=== PATIENT | male | born 1980 | race Caucasian/White ===

== ENCOUNTER 2016-04-28 09:58 | Emergency (ER) | payer OTHER ==
[~2016-04-28] VITALS: Ht 175.3 cm; Wt 88.5 kg
[2016-04-28 10:01] VITALS: BP 140/82
--- NOTE | 2016-04-28 10:08 | NUR ---
PT BIB SELF C/O RT SHOULDER PAIN X 1 WEEK; PT STATES HAD INJURY TO RT SHOULDER X 10 YEARS AGO FALLING OFF ROOF, HAD SCREW REMOVED FROM SHOULDER X 5 YEARS AGO D/T INFECTION, BUT DENIES RECENT INJURY TO SITE AT THIS TIME. RT SHOULDER IS SWOLLEN.PAIN IS AGGRAVATED BY MOVEMENT W/ A PAIN SCALE OF 10/10.HAS A HEALED SCAR AT RT SHOULDER;DENIES CP/SOB/F/N/V/.DESCRIBES PAIN POKING.AAOX4; NO ACUTE DISTRESS NOTED AT THIS TIME;HOB ELEVATED;POSITION FOR COMFORT;SAFETY PRECAUTION INSTITUTED;NEEDS ATTENDED;MD MADE AWARE OF PT'D CONDITION.
[2016-04-28] MEDS ORDERED: HYDROcodone/APAP 5/325 MG 1 TAB TAB PO ONE (10:30)
[2016-04-28] MEDS ORDERED: KETOROLAC 30 MG/ML VIAL IM ONE (10:30)
--- NOTE | 2016-04-28 10:34 | NUR ---
PT TAKEN TO XRAY VIA WHEELCHAIR
--- NOTE | 2016-04-28 10:48 | NUR ---
BACK FROM XRAY;NO ACUTE DISTRESS NOTED A THIS TIME;WILL CONTINUE TO MONITOR PT.
--- NOTE | 2016-04-28 11:37 | NUR ---
Patient discharged with v/s stable. Written and verbal after care instructions given and explained.Patient alert, oriented and verbalized understanding of instructions. Ambulatory with steady gait. All questions addressed prior to discharge. ID band removed. Patient advised to follow up with PMD. Rx of MOTRIN AND ROBAXIN given. Patient educated on indication of medication including possible reaction and side effects. Opportunity to ask questions provided and answered.ADVISED PT TO REFRAIN FROM STRENOUS ACTIVITIES UNTIL PAIN SUBSIDES.
[2016-04-28 11:39] VITALS: BP 112/66
== END 2016-04-28 11:37 | disposition home or self-care (01) ==
LOC: MED 09:58
DX: G89.29 Other chronic pain (principal); M25.511 Pain in right shoulder; F17.200 Nicotine dependence, unspecified, uncomplicated; Z71.6 Tobacco abuse counseling; Z98.890 Other specified postprocedural states
CPT/HCPCS: 73030; 96372; 99284; J1885

== ENCOUNTER 2018-12-29 08:15 | Emergency (ER) | payer MEDICAID, OTHER ==
[~2018-12-29] VITALS: Ht 175.3 cm; Wt 81.8 kg
[2018-12-29 08:18] VITALS: BP 137/73
--- NOTE | 2018-12-29 08:24 | NUR ---
PT AMB TO BED 7.
--- NOTE | 2018-12-29 08:25 | NUR ---
HOMELESS. BIB SELF C/O GENEVIEVE FORARM pain &SWELLING & "HOLE IN LT ARM" X2 WEEKS. OPEN WOUND TO LT FOREARM, PT REPORTS DRANAGE LAST NIGHT. - N/V OR FEVER. ADMITS TO IV HEROIN USE IN PAST 24 HOURS. PATIENT STATES PAIN OF 8/10 AT THIS TIME. PATIENT POSITIONED FOR COMFORT; BEDRAILS UP X1; BED DOWN. ER MD MADE AWARE OF PT STATUS.
--- NOTE | 2018-12-29 08:34 | NUR ---
Patient being evaluated by DR ADAMS at bedside.
[2018-12-29] MEDS ORDERED: SULFAMETH/TRIMETH DS 800/160MG 1 TAB PO ONE (08:45)
[2018-12-29] MEDS ORDERED: BACITRACIN OINT 500 UNITS/GM PKT TP ONE (08:45)
[2018-12-29] MEDS ORDERED: CEPHALEXIN 500 MG CAP PO ONE (08:45)
--- NOTE | 2018-12-29 08:50 | NUR ---
LFA WOUND DRESSING WITH NSS & APPLIED WITH BACITACIN & COVER WITH GAUZE & SECURE WITH TAPE. INSTRUCTED PT TO KEEP IT CLEAN &DRY.
--- NOTE | 2018-12-29 09:02 | NUR ---
Patient discharged with v/s stable. Written and verbal after care instructions given and explained. Patient alert, oriented and verbalized understanding of instructions. Ambulatory with steady gait. All questions addressed prior to discharge. ID band removed. Patient advised to follow up with PMD. Rx of KEFLEX, BACTRIM & NAPROXEN given. Patient educated on indication of medication including possible reaction and side effects. Opportunity to ask questions provided and answered. Given list of available shelters in surrounding areas.
[2018-12-29 09:04] VITALS: BP 125/67
== END 2018-12-29 09:02 | disposition home or self-care (01) ==
LOC: MED 08:15
DX: S41.102A Unspecified open wound of left upper arm, initial encounter (principal); L08.9 Local infection of the skin and subcutaneous tissue, unspecified; F14.90 Cocaine use, unspecified, uncomplicated; F11.90 Opioid use, unspecified, uncomplicated; Z59.0 Homelessness; X58.XXXA Exposure to other specified factors, initial encounter; Y93.89 Activity, other specified; Y92.89 Other specified places as the place of occurrence of the external cause; Y99.8 Other external cause status
CPT/HCPCS: 99284

== ENCOUNTER 2019-01-22 21:42 | Emergency (ER) | payer MEDICAID ==
[~2019-01-22] VITALS: Ht 175.3 cm; Wt 81.2 kg
[2019-01-22 21:55] VITALS: BP 149/85
--- NOTE | 2019-01-22 21:55 | NUR ---
PT ARRIVED TO ED C/O BILAT FOREARM ABSCESS X 3DAYS. PT STATES HE GOT THE LEFT SIDE ABSCESS 3 WEEKS AGO AND SAID HE WAS SENT HOME WITH ANTIBIOTIC. PT STATES THE RIGHT FOREARM STARTED FORING AN ABSCESS 3 DAYS AGO. BILAT FOREARSM SHOWS REDNESS, SWELLING, HOT AND HARD TO TOUCH. VSS. RIGHT FOREARM SHOWS SKIN TEARS, DRY BLOOD, AND SCRATCH HERRERA. NO DISTRSS NOTED. NO DRIANAGE NOTED. PT STATES HE DOES USE DRUG USE (HEROIN AND COKE). NKA. PMH: SUBSTANCE ABUSE (HEROIN IV USE Q DAY 4-5X A DAY X 10+ YR, COKE ON AND OFF Q DAY 4-5X A DAY X 5+YR.)
--- NOTE | 2019-01-22 21:55 | NUR ---
TO BED # 04 AMBULATORY
--- NOTE | 2019-01-22 23:03 | NUR ---
AT BEDSIDE TO JARON IBRAHIM
[2019-01-22] MEDS ORDERED: LIDOCAINE/EPI 1% 1:100000 20 ML VIAL INJ ONE (23:15)
--- NOTE | 2019-01-22 23:30 | NUR ---
DR DEE AT BEDSIDE FOR I&D, LIDOCAINE 1% WITH EPI ADMINISTERED BY DR DEE
[2019-01-22] MEDS ORDERED: CEPHALEXIN 500 MG CAP PO ONE (23:45)
[2019-01-22] MEDS ORDERED: SULFAMETH/TRIMETH DS 800/160MG 1 TAB PO ONE (23:45)
--- NOTE | 2019-01-23 00:05 | NUR ---
PT WOUNDS IRRIGATED AND CLEANED WITH NORMAL SALINE AND 3X3 GAUZE PADS, PT FOREARMS BOTH RIGHT AND LEFT DRESSED WITH 3X4 NON ADHERENT PADS AND WRAPPED WITH 4INCH GAUZE WRAP
[2019-01-23 00:31] VITALS: BP 149/85
--- NOTE | 2019-01-23 00:31 | NUR ---
Patient discharged with v/s stable. Written and verbal after care instructions given and explained. Patient alert, oriented and verbalized understanding of instructions. Ambulatory with steady gait. All questions addressed prior to discharge. ID band removed. Patient advised to follow up with PMD. Rx of NARCAN, BACTRIM, AND KEFLEX given. Patient educated on indication of medication including possible reaction and side effects. Opportunity to ask questions provided and answered.
== END 2019-01-23 00:31 | disposition home or self-care (01) ==
LOC: MED 21:42
DX: L02.414 Cutaneous abscess of left upper limb (principal); L02.413 Cutaneous abscess of right upper limb; F11.10 Opioid abuse, uncomplicated; F14.10 Cocaine abuse, uncomplicated
CPT/HCPCS: 10061; 99284; J2001

== ENCOUNTER 2019-03-05 15:35 | Emergency (ER) | payer MEDICAID ==
[~2019-03-05] VITALS: Ht 175.3 cm; Wt 78.9 kg
[2019-03-05 15:43] VITALS: BP 145/95
--- NOTE | 2019-03-05 15:50 | NUR ---
C/O ABSCESS TO RIGHT UPPER ARM X2 DAYS. STATES HIT AFFECTED AREA AGAINST STACK OF PALETTES AT WORK. DENIES OPEN SKIN, DRAINAGE, FEVERS. ABSCESS NOTED ON RT UPPER ARM WITH ERYTHEMA, WARMTH, SCALING AND FLUCTUENCE AT CENTER. HX DENIES
--- NOTE | 2019-03-05 16:16 | NUR ---
MANGO MONSIVAIS EVALUATING PT AT BEDSIDE
[2019-03-05] MEDS ORDERED: LIDOCAINE/EPI 1% 1:100000 20 ML VIAL INJ ONE (16:20)
[2019-03-05 16:47] VITALS: BP 145/95
--- NOTE | 2019-03-05 16:47 | NUR ---
Patient discharged with v/s stable. Written and verbal after care instructions given and explained. Patient alert, oriented and verbalized understanding of instructions. Ambulatory with steady gait. All questions addressed prior to discharge. ID band removed. Patient advised to follow up with PMD. Rx of KEFLEX, MOTRIN, BACTRIM DS given. Patient educated on indication of medication including possible reaction and side effects. Opportunity to ask questions provided and answered.
== END 2019-03-05 16:47 | disposition home or self-care (01) ==
LOC: MED 15:35
DX: L02.413 Cutaneous abscess of right upper limb (principal); F11.20 Opioid dependence, uncomplicated
CPT/HCPCS: 10060; 99283; J2001

== ENCOUNTER 2019-03-07 20:05 | Emergency (ER) | payer MEDICAID ==
--- NOTE | 2019-03-07 20:20 | NUR ---
PATIENT CALLED [facility] TRIAGE NO RESPONSE PATIENT LEFT WITHOUT BEING SEEN BY DR. KELLY. NO FURTHER CARE PROVIDED FOR PATIENT.
--- NOTE | 2019-03-07 20:25 | NUR ---
CALLED FOR THE SECOND TIME NO RESPONSE
--- NOTE | 2019-03-07 20:30 | NUR ---
CALLED FOR THE THIRD TIME NO RESPONSE
== END 2019-03-07 20:20 | disposition left against medical advice (07) ==
LOC: MED 20:05
DX: L02.91 Cutaneous abscess, unspecified (principal); Z53.21 Procedure and treatment not carried out due to patient leaving prior to being seen by health care provider

== ENCOUNTER 2019-03-07 21:10 | Emergency (ER) | payer MEDICAID ==
[~2019-03-07] VITALS: Ht 175.3 cm; Wt 81.2 kg
[2019-03-07 21:10] VITALS: BP 155/90
--- NOTE | 2019-03-07 21:12 | NUR ---
TO LOBBY A/W BED AMBULATORY
--- NOTE | 2019-03-07 23:36 | NUR ---
PT AMBULATED TO CHAIR C.
--- NOTE | 2019-03-08 00:05 | NUR ---
Dr. Kelley examining patient.
[2019-03-08 00:12] VITALS: BP 155/90
--- NOTE | 2019-03-08 00:12 | NUR ---
Patient discharged with v/s stable. Written and verbal after care instructions given and explained. Patient verbalized understanding. Ambulatory with steady gait. All questions addressed prior to discharge. Advised to follow up with PMD. PT WAS ASSESSED AND D/C BY DR. KELLY
== END 2019-03-08 00:12 | disposition home or self-care (01) ==
LOC: MED 21:10
DX: L02.413 Cutaneous abscess of right upper limb (principal); M79.601 Pain in right arm; F11.10 Opioid abuse, uncomplicated
CPT/HCPCS: 99283

== ENCOUNTER 2019-03-20 00:49 | Emergency (ER) | payer MEDICAID ==
[~2019-03-20] VITALS: Ht 175.3 cm; Wt 78.5 kg
[2019-03-20 00:53] VITALS: BP 124/80
--- NOTE | 2019-03-20 00:58 | NUR ---
PT AMBULATED TO BED #7
[2019-03-20] MEDS ORDERED: FLUORESCEIN OPTH STRIP 1 MG OP ONE (01:10)
[2019-03-20] MEDS ORDERED: TETRACAINE HCL/PF 0.5% OPTH 4 ML BTL OP ONE (01:10)
--- NOTE | 2019-03-20 01:15 | NUR ---
38 YEAR OLD MALE COMPLAINS OF RIGHT EYE SWELLING X 30MINS. PATIENT STATES THAT HIS EYE FELT ITCHY AND STARTED TO RUB IT, THEN IT BECAME INFLAMMED. RIGHT EYE VISIBLY SWOLLEN, NO DISCHARGE NOTED. PATIENT STATES THAT HE PUT A PREDNISONE EYEDROP THAT HIS FATHER GAVE HIM. PATIENT STATES HIS RIGHT EYE IS MORE BLURRY THAN NORMAL. PATIENT AOX4, BREATHING EVNE AND UNLABORED, SKIN WARM AND DRY. BED IN LOWEST POSITION, LOCKED, BED RAIL UPX1. PMH - HEROIN
--- NOTE | 2019-03-20 01:25 | NUR ---
20/70 VISUAL ACUITY RESULTS FOR BOTH RIGHT AND LEFT EYES, PATIENT STATES THAT HE IS FAR SIGHTED AND FORGOT HIS GLASSES AT HOME, DR RENDON MADE AWARE.
--- NOTE | 2019-03-20 01:35 | NUR ---
DR RENDON AT BEDSIDE EXAMINING PT EYE
--- NOTE | 2019-03-20 02:19 | NUR ---
PATIENT ELOPED FROM FACILITY. DISCHARGE INSTRUCTIONS NOT GIVEN TO PATIENT. DR. RENDON NOTIFIED. PATIENT STATES "IM JUST GOING TO GO HOME, I DONT WANT TO WAIT"
== END 2019-03-20 02:19 | disposition left against medical advice (07) ==
LOC: MED 00:49
DX: H10.11 Acute atopic conjunctivitis, right eye (principal); F11.90 Opioid use, unspecified, uncomplicated; Z91.018 Allergy to other foods
CPT/HCPCS: 99284; Q0163

== ENCOUNTER 2022-06-02 17:37 | Emergency (ER) | payer MEDICAID ==
[~2022-06-02] VITALS: Ht 172.7 cm; Wt 79.4 kg
[2022-06-02 17:41] VITALS: BP 149/79
[2022-06-02] MEDS ORDERED: KETOROLAC 30 MG/ML VIAL IM ONE (18:00)
[2022-06-02] MEDS ORDERED: BACITRACIN OINT 500 UNITS/GM PKT TP ONE (18:00)
[2022-06-02] MEDS ORDERED: CEPH-588 PO (18:11)
[2022-06-02] MEDS ORDERED: IBUP-2213 PO (18:11)
--- NOTE | 2022-06-02 18:28 | NUR ---
Patient discharged with v/s stable. Written and verbal after care instructions given and explained. Patient alert, oriented and verbalized understanding of instructions. Ambulatory with steady gait. All questions addressed prior to discharge. ID band removed. Patient advised to follow up with PMD. Rx of KEFLEX, MOTRIN given. Patient educated on indication of medication including possible reaction and side effects. Opportunity to ask questions provided and answered.
== END 2022-06-02 18:26 | disposition home or self-care (01) ==
LOC: MED 17:37
DX: S91.331A Puncture wound without foreign body, right foot, initial encounter (principal); X58.XXXA Exposure to other specified factors, initial encounter; Y93.89 Activity, other specified; Y92.89 Other specified places as the place of occurrence of the external cause; Y99.8 Other external cause status
CPT/HCPCS: 73630; 90471; 90715; 96372; 99284; J1885

== ENCOUNTER 2022-10-21 16:37 | Emergency (ER) | payer MEDICAID ==
[~2022-10-21] VITALS: Ht 175.3 cm; Wt 89.8 kg
[~2022-10-21 16:37] MED LIST: CEPH-588 PO; IBUP-2213 PO
[2022-10-21 17:08] VITALS: BP 140/73; PULSE 69; RESP 20; TEMP 98.1; O2SAT 99
[2022-10-21 17:59] LABS: FLU A ANTIGEN negative (NEGATIVE); FLU B ANTIGEN NEGATIVE (NEGATIVE)
[2022-10-21] MEDS ORDERED: IBUP-2213 PO (18:16)
[2022-10-21] MEDS ORDERED: ACET-10509 PO (18:16)
[2022-10-21] MEDS ORDERED: PROM118S5 PO (18:16)
[2022-10-21 18:21] VITALS: BP 140/73; PULSE 69; RESP 20; TEMP 98.1; O2SAT 99
== END 2022-10-21 18:21 | disposition home or self-care (01) ==
LOC: MED 16:37
DX: U07.1 COVID-19 (principal); Z79.899 Other long term (current) drug therapy
CPT/HCPCS: 99283

== ENCOUNTER 2023-01-25 22:03 | Emergency (ER) | payer MEDICAID ==
[~2023-01-25] VITALS: Ht 175.3 cm; Wt 95.3 kg
[~2023-01-25 22:03] MED LIST changes: +ACET-10509 PO; +PROM118S5 PO
[2023-01-25 22:27] VITALS: BP 119/78; PULSE 76; RESP 20; TEMP 99.1; O2SAT 95
[2023-01-25] MEDS ORDERED: TETRACAINE HCL/PF 0.5% OPTH 4 ML BTL OP ONE (22:50)
[2023-01-25] MEDS ORDERED: FLUORESCEIN OPTH STRIP 1 MG OP ONE (22:50)
[2023-01-25] MEDS ORDERED: HYDROcodone/APAP 5/325 MG 1 TAB TAB PO ONE (23:25)
[2023-01-25] MEDS ORDERED: ACET-8905 PO (23:53)
[2023-01-25] MEDS ORDERED: NAPR-54 PO (23:53)
[2023-01-25] MEDS ORDERED: TOBR5DRO10 OP (23:53)
[2023-01-26] MEDS ORDERED: ACET-9529 PO (00:22)
== END 2023-01-25 23:58 | disposition home or self-care (01) ==
LOC: MED 22:03
DX: T15.01XA Foreign body in cornea, right eye, initial encounter (principal); Z91.018 Allergy to other foods
CPT/HCPCS: 99283